=== PATIENT | female | born 2000 | race African-American/Black ===

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

== ENCOUNTER 2019-10-05 10:20 | Emergency (ER) | payer BC, SELFPAY ==
[2019-10-05] MEDS ORDERED: Bicillin LA 1.2 MILLION UNITS/2 ML SYRINGE ONE (10:43)
== END 2019-10-05 11:09 | disposition home or self-care (01) ==
LOC: NAV ERS 10:20
DX: J02.9 Acute pharyngitis, unspecified (principal)
CPT/HCPCS: 96372; 99283; J0561

== ENCOUNTER 2021-01-30 22:00 | Emergency (ER) | payer BC ==
[2021-01-30] MEDS ORDERED: Ondansetron ODT 4 MG TAB ONE (22:22)
[2021-01-30] MEDS ORDERED: Acetaminophen 500 MG TAB ONE (22:22)
[2021-01-30] MEDS ORDERED: Dexamethasone 4 MG TAB ONE (22:22)
[2021-01-30] MEDS ORDERED: diphenhydrAMINE 25 MG CAP ONE (22:22)
== END 2021-01-30 22:37 | disposition home or self-care (01) ==
LOC: NAV ERS 22:00
DX: B34.9 Viral infection, unspecified (principal); R51.9 Headache, unspecified
CPT/HCPCS: 99283; J8540; Q0162; Q0163

== ENCOUNTER 2021-03-03 18:37 | Emergency (ER) | payer BC ==
[2021-03-04 16:25] LABS: SARS-CoV-2 PCR by NAA Not Detected (NotDetected)
== END 2021-03-03 21:21 | disposition home or self-care (01) ==
LOC: NAV ERS 18:37
DX: J06.9 Acute upper respiratory infection, unspecified (principal); Z20.822 Contact with and (suspected) exposure to COVID-19
CPT/HCPCS: 87807; 99283; U0003; U0005

== ENCOUNTER 2022-06-30 11:22 | Emergency (ER) | payer BC ==
[2022-06-30] MEDS ORDERED: Ibuprofen 200 MG TAB ONE (11:58)
[2022-06-30] MEDS ORDERED: Dexamethasone 20 MG/5 ML VIAL ONE (11:58)
[2022-06-30] MEDS ORDERED: Acetaminophen 500 MG TAB ONE (11:58)
== END 2022-06-30 12:28 | disposition home or self-care (01) ==
LOC: NAV ERS 11:22
DX: J06.9 Acute upper respiratory infection, unspecified (principal)
CPT/HCPCS: 87081; 87430; 87804; 99283; J1100